=== PATIENT | female | born 1975 | race Caucasian/White ===

== ENCOUNTER 2016-12-11 21:00 | Inpatient (IN) | payer OTHER ==
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
--- NOTE | ~2016-12-11 | CO ---
Unit #: [id number] #: [id number] Patient: VALORIE MARINO [id number] [place] [address] [id number] MR#: [id number] NAME: VALORIE MARINO ROOM: [facility] Age: 41 Sex: F Admission Date: 12/11/2016 : 1975 Attending Physician: Lacho Goodman M.D. Consultation Date: 12/12/2016 CONSULTATION REPORT REQUESTING PHYSICIAN Dr. Goodman. HISTORY OF PRESENT ILLNESS Valorie reports a history of rapid heart rate. She reports that she had been on propranolol, was told that her heart rate could cause a stroke; however, she does not believe, she was ever on any blood thinners, and is not sure exactly what her diagnosis was. During exam, her heart rate was 102. She also reports a history of COPD and has been off any of her medications, has occasionally used her mother's nebulizer. No shortness of air. No chest pain currently. She has no other complaints. PHYSICAL EXAMINATION CARDIAC: Regular rhythm. Tachycardia, heart rate 102. No murmurs, gallops, or rubs. RESPIRATORY: Clear to auscultation bilaterally. ASSESSMENT AND PLAN 1. Chronic obstructive pulmonary disease. We will begin Symbicort and albuterol. Please notify, if the patient complains of shortness of air or cough. 2. Tachycardia. We will obtain EKG and begin the patient on metoprolol 25 mg p.o. daily. Please notify, if tachycardia continues. The patient was instructed to follow up with her primary care provider. Dictated by... Kimberley Oshea A.P.R.N. for Mahsa Hanson/nicole TD: 12/12/2016 16:06 JOB #: [id number] Unit #: [id number] #: [id number] Patient: VALORIE MARINO CONSULTATION REPORT Page 1 of 1 X KIMBERLEY NARVAEZ APRN CONSULTATION REPORT
--- NOTE | ~2016-12-11 | DS ---
Unit #: [id number] #: [id number] Patient: JAZMYNE MARINO [id number] [facility] [address] [place] [address] [id number] MR#: [id number] NAME: JAZMYNE MARINO ROOM: P21 Age: 40 Sex: F Admission Date: 12/11/2016 : 1975 Discharge Date: 12/12/2016 Attending Physician: Lacho Goodman M.D. DISCHARGE SUMMARY REASON FOR ADMISSION Ms. Marino is a 40-year-old woman who initially came in reporting increasing use of benzodiazepines and heroin. She had fleeting suicidal ideation with no intent or plan, and was admitted for detox. DIAGNOSTIC STUDIES LABORATORY RESULTS: None were obtained. HOSPITAL COURSE The patient was admitted and placed on the benzodiazepine detox protocol, and other comfort medications. In the morning of my initial assessment, she claimed she was misled to come into the hospital, adamantly denied having made suicidal ideation or statements, and demanded that she will be discharged to a place where "it is better" like [facility]. I processed this information with her, and she continued to insist on discharge despite my explanation of her therapeutic program. A review of her previous medical records indicated that her last and only admission to this facility, also precipitated by substance abuse, ended in a rapid discharge as well and I believe that this patient's commitment to sobriety and effective treatment is fairly superficial, but does not including criteria for involuntary hospitalization. She was therefore granted her discharge request. DISCHARGE DIAGNOSES AXIS I: Benzodiazepine dependence; opioid dependence; mood disorder, not otherwise specified. AXIS II: Borderline personality traits. AXIS III: History of hypertension. AXIS IV: AXIS V: DISCHARGE INSTRUCTIONS Follow up with [facility]. DISCHARGE MEDICATIONS None. CONDITION AT DISCHARGE Fair. PROGNOSIS Fair. Unit #: [id number] #: [id number] Patient: JAZMYNE MARINO DIET AND ACTIVITY Per primary care doctor. Dictated by... Lacho Goodman M.D. H/nicole TD: 12/12/2016 14:07 JOB #: [id number] DISCHARGE SUMMARY Page 1 of 1 X Lacho Goodman MD X DISCHARGE SUMMARY
--- NOTE | ~2016-12-11 | HP ---
Unit #: [id number] #: [id number] Patient: VALORIE MARINO [id number] [place] [address] [id number] I MR#: [id number] NAME: VALORIE MARINO ROOM: P211 Age: 40 Sex: F Admission Date: 12/11/2016 : 1975 Attending Physician: Lacho Goodman M.D. Admitting Physician: Lacho Goodman M.D. Primary Care Physician: Primary Care Physician No HISTORY AND PHYSICAL HISTORY OF PRESENT ILLNESS Valorie is a 40-year-old female admitted on 12/11/[address] [place] [address] for detox from heroin, meth, and benzos. PAST MEDICAL HISTORY History of COPD, tachycardia, hepatitis C, chronic gastritis, and history of hypertension. PAST SURGICAL HISTORY Cholecystectomy and bilateral tubal ligation. SOCIAL HISTORY Smokes 2 packs of cigarettes daily. No alcohol use. Does report daily use of heroin and benzos and occasional methamphetamine. She is currently and living with her . FAMILY HISTORY Noncontributory. REVIEW OF SYSTEMS CONSTITUTIONAL: No fever or chills. HEENT: Denies any sore throat, ear pain or runny nose. CARDIOVASCULAR: Denies chest pain, irregular heart rhythm or palpitations. CHEST: Denies shortness of breath or cough. No hemoptysis. GASTROINTESTINAL: Denies nausea, vomiting, diarrhea or chronic constipation. ENDOCRINE: Denies history of increased thirst or urination. No recent significant weight loss or gain. GENITOURINARY: Denies dysuria, frequency, or hematuria. SKIN: Denies any rashes. HEMATOLOGIC: Denies history of increased bleeding or bruising. MUSCULOSKELETAL: Denies any hot, swollen joints. No generalized muscle pain. NEUROLOGIC: Denies problems with vision or speech. No frequent, severe headaches. No numbness, tingling or weakness in any extremities. Denies loss of bladder or bowel control. CURRENT MEDICATIONS None. ALLERGIES To Demerol. Unit #: [id number] #: [id number] Patient: VALORIE MARINO PHYSICAL EXAMINATION GENERAL: Alert, oriented, no acute distress. VITAL SIGNS: Blood pressure 138/109, heart rate 109, respirations 18, and temperature 97.6. HEIGHT: 5 feet 5. WEIGHT: 122 pounds. SKIN: Warm, dry. No rashes or lesions, track ray, cuts, etc. HEENT: Normocephalic. TMs not viewed. Oronasal passages clear. Conjunctivae clear. PERRLA. EOM is intact. NECK: No lymphadenopathy or thyromegaly. HEART: Regular rate and rhythm. No murmur, gallop, or rub. LUNGS: Clear to auscultation bilaterally. ABDOMEN: Soft, nontender without palpable masses or hepatosplenomegaly. : Not assessed. EXTREMITIES: No evidence of cyanosis, clubbing, or edema. Moves all extremities independently without obvious deficit. NEUROLOGICAL: Grossly within normal limits. Cranial Nerves: II: Visual barba are intact. III, IV AND : Extraocular movements are intact. Pupils are equal, round and reactive to light. V: Facial sensation is grossly normal. VII: Facial movements and expression are normal. VIII: Auditory acuity grossly intact. IX, X: Uvula is midline. Phonation is normal. XI: Patient shrugs shoulders and turns head normally. XII: Tongue protrudes in the midline. Sensory and Motor Function: Sensory and motor sensation is grossly normal. Motor: moves all extremities well. Coordination: Gait is normal. Deep Tendon Reflexes: Intact. IMPRESSION 1. Psychiatric admission. 2. Chronic obstructive pulmonary disease. 3. Tachycardia. 4. Hepatitis C. 5. Chronic gastritis. 6. History of hypertension. RECOMMENDATIONS PSYCHIATRIC: Per psychiatrist. MEDICAL: No contraindication to participate in this facility's activities. MEDICAL PROGNOSIS Good. MEDICAL CONDITION Stable. Dictated by... Russ SextonRRene Ragland TD: 12/12/2016 14:53 JOB #: [id number] Unit #: [id number] #: [id number] Patient: VALORIE MARINO HISTORY AND PHYSICAL Page 1 of 1 X DAVID NARVAEZ APRN X HISTORY AND PHYSICAL
== END 2016-12-12 13:15 | DRG 897 ==
LOC: P2S 23:08
PROC: HZ2ZZZZ Detoxification Services for Substance Abuse Treatment (ICD-10-PCS; principal; 2016-12-12)
DX: F13.20 Sedative, hypnotic or anxiolytic dependence, uncomplicated (principal); F11.20 Opioid dependence, uncomplicated; I10 Essential (primary) hypertension; F39 Unspecified mood [affective] disorder; F60.3 Borderline personality disorder; J44.9 Chronic obstructive pulmonary disease, unspecified; R00.0 Tachycardia, unspecified